=== PATIENT | male | born 1970 | race Two or more races ===

== ENCOUNTER 2019-03-08 10:20 | Emergency (ER) | payer MEDICARE, MEDICAID ==
[~2019-03-08] VITALS: Ht 172.7 cm; Wt 179.6 kg
[~2019-03-08 10:20] MED LIST: ALBU18HF2 INH; AMLO5TAB PO; ASPI-1264 PO; ATEN100T PO; BUDE180A INH; CITA40TA11 PO; HYDR-4383 PO; LISI10TA4 PO; METF-437 PO; TAMS0.4C32 PO; TRIA1CAP6 PO
[2019-03-08 10:32] VITALS: BP 135/78
[2019-03-08] MEDS ORDERED: ketorolac tromethamine 15mg/ml inj. IM ONE (10:45)
== END 2019-03-08 11:55 | disposition home or self-care (01) ==
LOC: ER 10:21
DX: M25.532 Pain in left wrist (principal); E66.9 Obesity, unspecified; I10 Essential (primary) hypertension; J44.9 Chronic obstructive pulmonary disease, unspecified; G89.29 Other chronic pain; Z56.0 Unemployment, unspecified; Z98.890 Other specified postprocedural states; Z90.49 Acquired absence of other specified parts of digestive tract; Z98.84 Bariatric surgery status; Z88.5 Allergy status to narcotic agent; Z79.82 Long term (current) use of aspirin; Z79.899 Other long term (current) drug therapy
CPT/HCPCS: 29125; 73110; 96372; 99283; J1885

== ENCOUNTER 2019-05-03 08:22 | Emergency (ER) | payer MEDICARE, MEDICAID ==
[~2019-05-03] VITALS: Ht 180.3 cm; Wt 178.0 kg
[2019-05-03 09:22] LABS: BASOPHILS % (AUTO) 0.5 % (0-1); EOSINOPHILS # (AUTO) 0.2 X10'3 (0-0.9); EOSINOPHILS % (AUTO) 2.5 % (0-6); HEMATOCRIT 40.1 % (42.0-52.0); HEMOGLOBIN 13.6 g/dl (14.0-17.9); LYMPHOCYTES # (AUTO) 1.5 X10'3 (1.1-4.8); LYMPHOCYTES % (AUTO) 17.7 % (21-51); MEAN CORPUSCULAR HEMOGLOBIN 28.8 PG (27.0-31.0); MEAN CORPUSCULAR VOLUME 84.8 FL (78-98); MEAN PLATELET VOLUME 8.7 FL (7.4-10.4); MONOCYTES # (AUTO) 0.6 X10'3 (0-0.9); MONOCYTES % (AUTO) 7.2 % (2-12); NEUTROPHILS # (AUTO) 6.1 X10'3 (1.8-7.7); NEUTROPHILS % (AUTO) 72.1 % (42-75); PLATELET COUNT 176 X10'3 (140-440); RED BLOOD COUNT 4.73 X10'6 (4.70-6.10); RED CELL DISTRIBUTION WIDTH 14.2 % (11.5-14.5); WHITE BLOOD COUNT 8.4 X10'3 (4.5-11.0)
[2019-05-03 09:32] LABS: CLARITY,URINE SLIGHTLY CLOUDY (Clear); COLOR,URINE STRAW (Yellow); GLUCOSE, URINE NEGATIVE (Neg); KETONES,URINE NEGATIVE (Neg); LEUKOCYTE ESTERASE ,URINE NEGATIVE (Neg); NITRITES, URINE NEGATIVE (Neg); OCCULT BLOOD,URINE NEGATIVE (Neg); PROTEIN,URINE NEGATIVE (Neg); UROBILINOGEN,URINE 0.2 E.U/dL (0.2-1.0)
[2019-05-03 09:33] LABS: UA COLLECTION TYPE CLN CATCH MIDSTREAM
[2019-05-03 09:37] LABS: SQUAMOUS EPITHELIAL CELL,UR MANY /LPF (FEW)
[2019-05-03 09:38] LABS: BACTERIA,URINE 1+ /HPF (Neg); RBC,URINE 0-2 /HPF (0-2); WBC,URINE 0-4 /HPF (0-4)
[2019-05-03 09:38] LABS: D-DIMER 3.54 MG/L FEU (0-0.50)
[2019-05-03 09:49] LABS: ALANINE AMINOTRANSFERASE 17 U/L (12-78); ALBUMIN 3.4 G/DL (3.4-5.0); ALBUMIN/GLOBULIN RATIO 0.8 (1.1-1.5); ALKALINE PHOSPHATASE 62 IU/L (46-116); ANION GAP 6 (8-16); ASPARTATE AMINO TRANSFERASE 13 U/L (10-37); BILIRUBIN,TOTAL 0.3 MG/DL (0.1-1.0); BLOOD UREA NITROGEN 14 MG/DL (7-18); BUN/CREATININE RATIO 14.3 (5.4-32.0); CALCIUM 8.8 MG/DL (8.5-10.1); CHLORIDE 104 MMOL/L (99-107); CREATININE 0.98 MG/DL (0.60-1.10); GLUCOSE 152 MG/DL (70-104); SODIUM 138 MMOL/L (135-145); TOTAL CARBON DIOXIDE 28.3 MMOL/L (24-32); TOTAL PROTEIN 7.5 G/DL (6.4-8.2); eGFR 82 ML/MIN
[2019-05-03] MEDS ORDERED: iohexol 350MG/ML 100ml bottle IV ONE (10:32)
[2019-05-03] MEDS ORDERED: MESSAGE TO NURSING PO ONE (11:05)
[2019-05-03 11:20] VITALS: BP 107/47
[2019-05-03] MEDS ORDERED: ketorolac tromethamine 15mg/ml inj. IM ONE (11:25)
[2019-05-03] MEDS: orphenadrine citrate 60mg/2ml inj. IM ONE ×2 (11:33→11:38)
== END 2019-05-03 12:06 | disposition home or self-care (01) ==
LOC: ER 08:22
DX: S29.012A Strain of muscle and tendon of back wall of thorax, initial encounter (principal); E66.9 Obesity, unspecified; E11.9 Type 2 diabetes mellitus without complications; I10 Essential (primary) hypertension; J44.9 Chronic obstructive pulmonary disease, unspecified; G89.29 Other chronic pain; F17.200 Nicotine dependence, unspecified, uncomplicated; Z56.0 Unemployment, unspecified; Z98.890 Other specified postprocedural states; Z90.49 Acquired absence of other specified parts of digestive tract; Z98.84 Bariatric surgery status; Z88.5 Allergy status to narcotic agent; Z79.82 Long term (current) use of aspirin; Z79.899 Other long term (current) drug therapy; X58.XXXA Exposure to other specified factors, initial encounter; Y93.89 Activity, other specified; Y92.89 Other specified places as the place of occurrence of the external cause; Y99.9 Unspecified external cause status
CPT/HCPCS: 36415; 71045; 71275; 80053; 81001; 83880; 85025; 85379; 96372; 99284; J1885; J2360; Q9967

== ENCOUNTER 2020-03-28 17:03 | Emergency (ER) | payer MEDICARE, MEDICAID ==
[~2020-03-28] VITALS: Ht 172.7 cm; Wt 186.4 kg
[2020-03-28] MEDS ORDERED: methylPREDNISolone sod succ 125mg/2ml vial IV ONE (17:25)
[2020-03-28] MEDS ORDERED: normal saline 1000ML IV soln IVB ONE ×2 (17:25→18:25)
[2020-03-28] MEDS ORDERED: ondansetron/PF 4mg/2ml inj IV ONE (17:30)
[2020-03-28] MEDS ORDERED: morphine 4 MG/ML inj SYRINge IV ONE (18:15)
[2020-03-28 18:18] LABS: BASOPHILS % (AUTO) 0.3 % (0-1); EOSINOPHILS # (AUTO) 0.2 X10'3 (0-0.9); EOSINOPHILS % (AUTO) 4.5 % (0-6); HEMATOCRIT 41.2 % (42.0-52.0); LYMPHOCYTES # (AUTO) 0.5 X10'3 (1.1-4.8); LYMPHOCYTES % (AUTO) 9.7 % (21-51); MEAN CORPUSCULAR HEMOGLOBIN 28.6 PG (27.0-31.0); MEAN PLATELET VOLUME 8.4 FL (7.4-10.4); MONOCYTES # (AUTO) 0.6 X10'3 (0-0.9); MONOCYTES % (AUTO) 13.2 % (2-12); NEUTROPHILS # (AUTO) 3.5 X10'3 (1.8-7.7); NEUTROPHILS % (AUTO) 72.3 % (42-75); PLATELET COUNT 184 X10'3 (140-440); RED CELL DISTRIBUTION WIDTH 13.2 % (11.5-14.5); WHITE BLOOD COUNT 4.9 X10'3 (4.5-11.0)
[2020-03-28] MEDS ORDERED: acetaminophen 325mg tablet PO ONE (18:25)
[2020-03-28 18:30] LABS: PARTIAL THROMBOPLASTIN TIME 27 SECONDS (22-32)
[2020-03-28 18:44] LABS: ALANINE AMINOTRANSFERASE 24 U/L (12-78); ALBUMIN 3.5 G/DL (3.4-5.0); ALBUMIN/GLOBULIN RATIO 0.9 (1.1-1.5); ALKALINE PHOSPHATASE 61 IU/L (46-116); ANION GAP 8 (8-16); ASPARTATE AMINO TRANSFERASE 10 U/L (10-37); BILIRUBIN,TOTAL 0.9 MG/DL (0.1-1.0); BLOOD UREA NITROGEN 10 MG/DL (7-18); BUN/CREATININE RATIO 11.9 (5.4-32.0); CALCIUM 8.4 MG/DL (8.5-10.1); CHLORIDE 99 MMOL/L (99-107); CREATININE 0.84 MG/DL (0.60-1.10); GLUCOSE 150 MG/DL (70-104); POTASSIUM 3.6 MMOL/L (3.5-5.1); SODIUM 134 MMOL/L (135-145); TOTAL CARBON DIOXIDE 26.7 MMOL/L (24-32); TOTAL PROTEIN 7.3 G/DL (6.4-8.2); eGFR > 90 ML/MIN
[2020-03-28 20:16] LABS: CLARITY,URINE CLEAR (Clear); COLOR,URINE YELLOW (Yellow); GLUCOSE, URINE NEGATIVE (Neg); KETONES,URINE NEGATIVE (Neg); LEUKOCYTE ESTERASE ,URINE NEGATIVE (Neg); NITRITES, URINE NEGATIVE (Neg); OCCULT BLOOD,URINE SMALL (Neg); PROTEIN,URINE NEGATIVE (Neg); UROBILINOGEN,URINE 0.2 E.U/dL (0.2-1.0)
[2020-03-28 20:24] VITALS: BP 116/71
[2020-03-28 20:24] LABS: UA COLLECTION TYPE VOIDED
[2020-03-28 20:26] LABS: BACTERIA,URINE NONE SEEN /HPF (Neg); RBC,URINE 0-2 /HPF (0-2); SQUAMOUS EPITHELIAL CELL,UR FEW /LPF (FEW); WBC,URINE NONE SEEN /HPF (0-4)
[2020-03-28] MEDS ORDERED: ONDA4TAB6 PO (20:40)
--- NOTE | 2020-03-28 21:19 | NUR ---
VS [id number]/71 [phone]
== END 2020-03-28 21:44 | disposition home or self-care (01) ==
LOC: ER 17:03
DX: R19.7 Diarrhea, unspecified (principal); R11.2 Nausea with vomiting, unspecified; J02.9 Acute pharyngitis, unspecified; I10 Essential (primary) hypertension; J44.9 Chronic obstructive pulmonary disease, unspecified; E11.9 Type 2 diabetes mellitus without complications; F41.9 Anxiety disorder, unspecified; F32.9 Major depressive disorder, single episode, unspecified; F17.200 Nicotine dependence, unspecified, uncomplicated; Z90.49 Acquired absence of other specified parts of digestive tract; Z98.61 Coronary angioplasty status; Z56.0 Unemployment, unspecified; Z88.5 Allergy status to narcotic agent; Z79.82 Long term (current) use of aspirin; Z79.899 Other long term (current) drug therapy
CPT/HCPCS: 36415; 71045; 80053; 81001; 83605; 83880; 85025; 85610; 85730; 87040; 87635; 93005; 96361; 96374; 96375; 99285; J2270; J2405; J2930; J7030

== ENCOUNTER 2020-06-16 11:25 | Emergency (ER) | payer MEDICARE, MEDICAID ==
[~2020-06-16] VITALS: Ht 172.7 cm; Wt 200.0 kg
[~2020-06-16 11:25] MED LIST changes: -BUDE180A INH; -LISI10TA4 PO; +OXYB5TAB16 PO; +UMEC1DIS INH
[2020-06-16] MEDS ORDERED: fentaNYL/PF 50MCG/1 ML 2ML syringe IV ONE (12:00)
[2020-06-16] MEDS ORDERED: normal saline 1000ml 1,000 ML IV ONE (12:25)
[2020-06-16] MEDS ORDERED: oxyCODONE/APAP 10/325mg tablet PO ONE (12:40)
[2020-06-16] MEDS ORDERED: TETanus/Pertussis (Acell)/Diphther VAC/PF (Tdap-Adult) 0.5ml syringe IMVAC ONE (12:40)
[2020-06-16] MEDS ORDERED: BACI1PAC7 TOP ×2 (12:44→14:29)
[2020-06-16] MEDS ORDERED: OXYC-145 PO (12:44)
[2020-06-16] MEDS: morphine 10mg/ml inj. IV PRN ×2 (12:50→13:44)
[2020-06-16] MEDS ORDERED: mag hydrox/Alum hydrox/simeth 30ml oral suspension PO ONE (13:20)
[2020-06-16] MEDS ORDERED: ketamine 10mg/ml 20ml inj IV ONE (14:35)
[2020-06-16] MEDS ORDERED: ketamine 50 mg/ml 10ml vial IV ONE (14:40)
[2020-06-16] MEDS ORDERED: ondansetron/PF 4mg/2ml inj IV ONE (15:45)
[2020-06-16] MEDS ORDERED: proCHLORperazine 10 MG/2 ml inj IV ONE (17:10)
[2020-06-16 17:17] VITALS: BP 127/79
== END 2020-06-16 17:22 | disposition home or self-care (01) ==
LOC: ER 11:26
DX: T23.201A Burn of second degree of right hand, unspecified site, initial encounter (principal); T31.0 Burns involving less than 10% of body surface; T20.20XA Burn of second degree of head, face, and neck, unspecified site, initial encounter; T21.21XA Burn of second degree of chest wall, initial encounter; T20.22XA Burn of second degree of lip(s), initial encounter; T23.221A Burn of second degree of single right finger (nail) except thumb, initial encounter; I10 Essential (primary) hypertension; J44.9 Chronic obstructive pulmonary disease, unspecified; G89.29 Other chronic pain; E11.9 Type 2 diabetes mellitus without complications; F41.9 Anxiety disorder, unspecified; F32.9 Major depressive disorder, single episode, unspecified; Z90.49 Acquired absence of other specified parts of digestive tract; Z98.890 Other specified postprocedural states; Z72.89 Other problems related to lifestyle; Z56.0 Unemployment, unspecified; Z88.5 Allergy status to narcotic agent; Z79.82 Long term (current) use of aspirin; Z79.84 Long term (current) use of oral hypoglycemic drugs; Z79.899 Other long term (current) drug therapy; X08.8XXA Exposure to other specified smoke, fire and flames, initial encounter; Y93.89 Activity, other specified; Y92.89 Other specified places as the place of occurrence of the external cause; Y99.8 Other external cause status
CPT/HCPCS: 90471; 90715; 96361; 96374; 96375; 96376; 99285; J0780; J2270; J2405; J3010; J7030

== ENCOUNTER 2020-06-17 05:39 | Day surgery (SDC) | payer MEDICARE, MEDICAID ==
[2020-06-10 16:11] LABS: ALBUMIN 3.6 G/DL (3.4-5.0); ALKALINE PHOSPHATASE 62 IU/L (46-116); BLOOD UREA NITROGEN 9 MG/DL (7-18); BUN/CREATININE RATIO 10.6 (5.4-32.0); CALCIUM 8.9 MG/DL (8.5-10.1); CHLORIDE 103 MMOL/L (99-107); CREATININE 0.85 MG/DL (0.60-1.10); PRE OP ALT 21 U/L (30-65); PRE OP ANION GAP 7 (8-16); PRE OP AST 13 U/L (10-37); PRE OP BILIRUB, TOTAL 0.3 MG/DL (0.0-1.0); PRE OP GLUCOSE 120 MG/DL (70-104); PRE OP POTASSIUM 3.9 MMOL/L (3.4-5.1); PRE OP SODIUM 138 MMOL/L (135-145); TOTAL CARBON DIOXIDE 27.9 MMOL/L (24-32); TOTAL PROTEIN 7.3 G/DL (6.4-8.2); eGFR > 90 ML/MIN
[2020-06-10 16:14] LABS: BASOPHILS % (AUTO) 0.6 % (0-1); EOSINOPHILS # (AUTO) 0.3 X10'3 (0-0.9); EOSINOPHILS % (AUTO) 3.3 % (0-6); LYMPHOCYTES # (AUTO) 1.9 X10'3 (1.1-4.8); LYMPHOCYTES % (AUTO) 24.6 % (21-51); MEAN CORPUSCULAR HEMOGLOBIN 28.6 PG (27.0-31.0); MEAN CORPUSCULAR HGB CONC 33.6 g/dL (33.0-36.5); MEAN PLATELET VOLUME 8.8 FL (7.4-10.4); MONOCYTES # (AUTO) 0.5 X10'3 (0-0.9); MONOCYTES % (AUTO) 6.7 % (2-12); NEUTROPHILS % (AUTO) 64.8 % (42-75); PRE OP HEMOGLOBIN 13.8 g/dL (14.0-17.9); PRE OP PLATELET COUNT 201 X10'3 (140-440); RED BLOOD COUNT 4.83 X10'6 (4.70-6.10); RED CELL DISTRIBUTION WIDTH 13.9 % (11.5-14.5)
[~2020-06-17] VITALS: Ht 172.7 cm; Wt 181.4 kg
[~2020-06-17 05:39] MED LIST changes: +BACI1PAC7 TOP; +DOCUMENT DATE & TIME OF BETA-BLOCKER PO ONE; +ceFAZolin 2gm in dextrose, iso 50 ML IV ONE; +famotidine 20mg tablet PO ONE; +ringers solution, lacted 1,000 ML IV SCH
--- NOTE | 2020-06-17 06:25 | NUR ---
PT CAME IN WITH NUMEROUS ZEE TO FACE, CHEST AND RT ARM. DR HARP NOTIFIED AND CANCELED CASE. PT SENT HOME WITH INSTRUCTIONS TO CALL DR BURGESS OFFICE TO RESCHEDULE. (PT WAS SEEN OVER WEEKEND IN HOSPITAL FOR ZEE.) HOME WITH FRIEND.
== END 2020-06-17 06:25 | disposition home or self-care (01) ==
LOC: PAS 05:39
PROVIDERS: ATTEND Orthopaedic Surgery Hand Surgery
DX: G56.02 Carpal tunnel syndrome, left upper limb (principal); Z53.8 Procedure and treatment not carried out for other reasons; M65.342 Trigger finger, left ring finger; Z72.0 Tobacco use
CPT/HCPCS: 36415; 80053; 85025; 87635; 93005; J7120

== ENCOUNTER 2020-07-05 05:17 | Day surgery (SDC) | payer MEDICARE, MEDICAID ==
[2020-06-28 10:58] LABS: BASOPHILS # (AUTO) 0.1 X10'3 (0-0.2); BASOPHILS % (AUTO) 0.8 % (0-1); EOSINOPHILS # (AUTO) 0.2 X10'3 (0-0.9); EOSINOPHILS % (AUTO) 2.8 % (0-6); LYMPHOCYTES # (AUTO) 1.6 X10'3 (1.1-4.8); LYMPHOCYTES % (AUTO) 26.8 % (21-51); MEAN CORPUSCULAR HEMOGLOBIN 27.9 PG (27.0-31.0); MEAN CORPUSCULAR HGB CONC 33.4 g/dL (33.0-36.5); MEAN CORPUSCULAR VOLUME 83.4 FL (78-98); MEAN PLATELET VOLUME 8.5 FL (7.4-10.4); MONOCYTES # (AUTO) 0.5 X10'3 (0-0.9); MONOCYTES % (AUTO) 7.7 % (2-12); NEUTROPHILS # (AUTO) 3.7 X10'3 (1.8-7.7); NEUTROPHILS % (AUTO) 61.9 % (42-75); PRE OP HEMATOCRIT 43.7 % (42.0-52.0); PRE OP HEMOGLOBIN 14.6 g/dL (14.0-17.9); PRE OP PLATELET COUNT 221 X10'3 (140-440); RED BLOOD COUNT 5.24 X10'6 (4.70-6.10); RED CELL DISTRIBUTION WIDTH 13.4 % (11.5-14.5)
[2020-06-28 11:13] LABS: ALBUMIN 3.7 G/DL (3.4-5.0); ALBUMIN/GLOBULIN RATIO 0.9 (1.1-1.5); ALKALINE PHOSPHATASE 73 IU/L (46-116); BLOOD UREA NITROGEN 10 MG/DL (7-18); BUN/CREATININE RATIO 11.1 (5.4-32.0); CHLORIDE 104 MMOL/L (99-107); PRE OP ALT 19 U/L (30-65); PRE OP ANION GAP 6 (8-16); PRE OP AST 11 U/L (10-37); PRE OP BILIRUB, TOTAL 0.3 MG/DL (0.0-1.0); PRE OP GLUCOSE 107 MG/DL (70-104); PRE OP POTASSIUM 4.4 MMOL/L (3.4-5.1); PRE OP SODIUM 140 MMOL/L (135-145); TOTAL CARBON DIOXIDE 29.7 MMOL/L (24-32); TOTAL PROTEIN 7.8 G/DL (6.4-8.2); eGFR 90 ML/MIN
[~2020-07-05] VITALS: Ht 172.7 cm; Wt 179.8 kg
[~2020-07-05 05:17] MED LIST changes: -DOCUMENT DATE & TIME OF BETA-BLOCKER PO ONE; -ceFAZolin 2gm in dextrose, iso 50 ML IV ONE; -famotidine 20mg tablet PO ONE; -ringers solution, lacted 1,000 ML IV SCH
[2020-07-05] MEDS ORDERED: famotidine 20mg tablet PO ONE (05:30)
[2020-07-05] MEDS ORDERED: ceFAZolin inj. 3,000 MG in normal saline 100ml IV soln 100 ML IV ONE (05:30)
[2020-07-05] MEDS ORDERED: albuterol 2.5 MG/3 ML nebule NEB ONE (05:30)
[2020-07-05] MEDS ORDERED: DOCUMENT DATE & TIME OF BETA-BLOCKER PO ONE (05:30)
[2020-07-05] MEDS ORDERED: LIDOcaine 1% (10mg/ml) 2ml vial ONE (05:36)
[2020-07-05 06:21] VITALS: BP 129/80
[2020-07-05 06:26] VITALS: BP 129/70
[2020-07-05] MEDS ORDERED: BUPIVAcaine/PF 2.5mg/ml (0.25%) 10ml vial ONE (06:36)
[2020-07-05] MEDS ORDERED: LIDOcaine 0.5% (5mg/ml) 50ml vial ONE (07:11)
[2020-07-05] MEDS ORDERED: fentaNYL/PF 50MCG/1 ML 2ML syringe ONE (07:22)
[2020-07-05] MEDS ORDERED: midazolam 2 mg/2 ml injection ONE (07:23)
[2020-07-05] MEDS ORDERED: morphine 4 MG/ML inj SYRINge IV PRN (07:45)
[2020-07-05] MEDS ORDERED: meperidine/PF 25mg/ml syringe IV PRN (07:45)
[2020-07-05] MEDS ORDERED: fentaNYL/PF 50MCG/1 ML 2ML syringe IV PRN ×2 (07:45)
[2020-07-05] MEDS ORDERED: proCHLORperazine 10 MG/2 ml inj IV PRN (07:45)
[2020-07-05] MEDS ORDERED: ringers solution, lacted 1,000 ML IV SCH (07:45)
[2020-07-05] MEDS ORDERED: labetalol 20mg/4ml (5mg/ml) syringe IV PRN (07:45)
[2020-07-05] MEDS ORDERED: propofol inj 20 ML IV ONE (07:45)
[2020-07-05] MEDS ORDERED: acetaminophen 1,000mg/100ml IV 100 ML IV PRN (07:45)
[2020-07-05] MEDS ORDERED: ondansetron/PF 4mg/2ml inj IV PRN (07:45)
[2020-07-05] MEDS ORDERED: morphine 2 MG/ML inj. syringe IV PRN (07:45)
[2020-07-05] MEDS ORDERED: hydrALAZINE 20mg/ml inj. IV PRN (07:45)
[2020-07-05 07:50] VITALS: BP 123/77
--- NOTE | 2020-07-05 07:50 | NUR ---
Received from OR via [facility] , accompanied by Anesthesiologist REJI and report given by Anesthesiolgist. PATIENT WITH 20GPIV IN RIGHT HAND. LEFT WITH BIAS DRESSING THAT IS CDI. DENIES PAIN. PATIENT WITH + CAP REFILL. VSS Addendum: 07/05/20 at 0757 by Leonel Courtney RN, RN Amended: Links added.
[2020-07-05 07:55] VITALS: BP 123/77
[2020-07-05 08:00] VITALS: BP 121/70
[2020-07-05 08:10] VITALS: BP 115/74
--- NOTE | 2020-07-05 08:20 | NUR ---
PATIENT A&OX4, DENIES PAIN, V/S WNL, NEUROVASCULAR CHECKS INTACT, 20G PIV LUE D/C, SCD OFF, DRESSING TO RIGHT WRIST CDI ELEVATED WITH ICEBAG APPLIED. I HAVE REVIEWED D/C INSTRUCTIONS WITH PATIENT AND FAMILY AND THEY HAVE VERBALIZED UNDERSTANDING. PATIENT D/C HOME WITH ALL BELONGINGS AND FAMILY GAVE TRANSPORT HOME. Addendum: 07/05/20 at 0828 by Leonel Courtney RN, RN Amended: Links added.
== END 2020-07-05 08:20 | disposition home or self-care (01) ==
LOC: PAS 05:17
PROVIDERS: ATTEND Orthopaedic Surgery Hand Surgery
DX: G56.02 Carpal tunnel syndrome, left upper limb (principal); M65.342 Trigger finger, left ring finger; Z20.822 Contact with and (suspected) exposure to COVID-19; M16.11 Unilateral primary osteoarthritis, right hip; E66.01 Morbid (severe) obesity due to excess calories; Z68.43 Body mass index [BMI] 50.0-59.9, adult; J44.9 Chronic obstructive pulmonary disease, unspecified; I10 Essential (primary) hypertension; E11.9 Type 2 diabetes mellitus without complications; F17.210 Nicotine dependence, cigarettes, uncomplicated; G47.30 Sleep apnea, unspecified; Z88.5 Allergy status to narcotic agent; Z90.49 Acquired absence of other specified parts of digestive tract; Z98.84 Bariatric surgery status; Z98.890 Other specified postprocedural states; Z79.84 Long term (current) use of oral hypoglycemic drugs; Z79.899 Other long term (current) drug therapy
CPT/HCPCS: 26055; 29848; 36415; 71046; 80053; 82948; 85025; 87635; J0690; J2001; J2250; J2704; J3010; J3490; A4215; A7000

== ENCOUNTER 2020-08-09 05:26 | Day surgery (SDC) | payer MEDICARE, MEDICAID ==
[2020-08-05 09:59] LABS: BASOPHILS # (AUTO) 0.1 X10'3 (0-0.2); BASOPHILS % (AUTO) 0.9 % (0-1); EOSINOPHILS # (AUTO) 0.2 X10'3 (0-0.9); EOSINOPHILS % (AUTO) 2.6 % (0-6); LYMPHOCYTES # (AUTO) 1.5 X10'3 (1.1-4.8); LYMPHOCYTES % (AUTO) 22.9 % (21-51); MEAN CORPUSCULAR VOLUME 82.2 FL (78-98); MEAN PLATELET VOLUME 8.2 FL (7.4-10.4); MONOCYTES # (AUTO) 0.6 X10'3 (0-0.9); MONOCYTES % (AUTO) 8.7 % (2-12); NEUTROPHILS # (AUTO) 4.2 X10'3 (1.8-7.7); NEUTROPHILS % (AUTO) 64.9 % (42-75); PRE OP HEMATOCRIT 41.6 % (42.0-52.0); PRE OP HEMOGLOBIN 14.2 g/dL (14.0-17.9); PRE OP PLATELET COUNT 179 X10'3 (140-440); RED BLOOD COUNT 5.06 X10'6 (4.70-6.10); RED CELL DISTRIBUTION WIDTH 13.5 % (11.5-14.5)
[2020-08-05 10:19] LABS: ALBUMIN 3.4 G/DL (3.4-5.0); ALBUMIN/GLOBULIN RATIO 0.9 (1.1-1.5); ALKALINE PHOSPHATASE 65 IU/L (46-116); BLOOD UREA NITROGEN 9 MG/DL (7-18); BUN/CREATININE RATIO 11.1 (5.4-32.0); CHLORIDE 102 MMOL/L (99-107); CREATININE 0.81 MG/DL (0.60-1.10); PRE OP ALT 17 U/L (30-65); PRE OP ANION GAP 8 (8-16); PRE OP AST 10 U/L (10-37); PRE OP BILIRUB, TOTAL 0.4 MG/DL (0.0-1.0); PRE OP GLUCOSE 150 MG/DL (70-104); PRE OP POTASSIUM 4.1 MMOL/L (3.4-5.1); PRE OP SODIUM 140 MMOL/L (135-145); TOTAL PROTEIN 7.4 G/DL (6.4-8.2); eGFR > 90 ML/MIN
[~2020-08-09] VITALS: Ht 172.7 cm; Wt 181.8 kg
[~2020-08-09 05:26] MED LIST changes: -AMLO5TAB PO; -ASPI-1264 PO; -ATEN100T PO; -BACI1PAC7 TOP; -CITA40TA11 PO; +LORA10TA7 PO; +OMEP20TA5 PO; +ringers solution, lacted 1,000 ML IV SCH
[2020-08-09 05:30] VITALS: BP 134/69
[2020-08-09] MEDS ORDERED: famotidine 20mg tablet PO ONE ×2 (05:30→06:05)
[2020-08-09] MEDS ORDERED: ceFAZolin inj. 3,000 MG in normal saline 100ml IV soln 100 ML IV ONE (05:30)
[2020-08-09] MEDS ORDERED: LIDOcaine 1% (10mg/ml) 2ml vial ONE (05:44)
[2020-08-09] MEDS ORDERED: BUPIVAcaine/PF 2.5mg/ml (0.25%) 10ml vial ONE (06:45)
[2020-08-09] MEDS ORDERED: LIDOcaine 0.5% (5mg/ml) 50ml vial ONE (07:31)
[2020-08-09] MEDS ORDERED: fentaNYL/PF 50MCG/1 ML 2ML syringe ONE ×2 (07:34→07:44)
[2020-08-09] MEDS ORDERED: midazolam 2 mg/2 ml injection ONE ×2 (07:36→07:46)
[2020-08-09] MEDS ORDERED: hydrALAZINE 20mg/ml inj. IV ONE (08:01)
[2020-08-09] MEDS ORDERED: propofol inj 20 ML IV ONE (08:01)
[2020-08-09 08:05] VITALS: BP 110/71
--- NOTE | 2020-08-09 08:05 | NUR ---
ADMITTED TO PACU FROM OR ACCOMPANIED BY ANESTHESIA. INTIAL PHYSICAL ASSESSMENT DONE AND RECORDED. REPORT RECEIVED FROM ANESTHESIA.
[2020-08-09 08:10] VITALS: BP 122/76
[2020-08-09 08:20] VITALS: BP 124/77
--- NOTE | 2020-08-09 08:30 | NUR ---
DISCHARGE CRITERIA MET, DISCHARGE INSTRUCTIONS GIVEN, DEMONSTRATES VERBAL UNDERSTANDING. DISCHARGED HOME IN GOOD CONDITION.
== END 2020-08-09 08:05 | disposition home or self-care (01) ==
LOC: PAS 05:26
PROVIDERS: ATTEND Orthopaedic Surgery Hand Surgery
DX: G56.01 Carpal tunnel syndrome, right upper limb (principal); M65.341 Trigger finger, right ring finger; M16.11 Unilateral primary osteoarthritis, right hip; F17.210 Nicotine dependence, cigarettes, uncomplicated; Z90.49 Acquired absence of other specified parts of digestive tract; G47.30 Sleep apnea, unspecified; J44.9 Chronic obstructive pulmonary disease, unspecified; I10 Essential (primary) hypertension; E11.9 Type 2 diabetes mellitus without complications; N40.0 Benign prostatic hyperplasia without lower urinary tract symptoms; E66.9 Obesity, unspecified; Z68.43 Body mass index [BMI] 50.0-59.9, adult; Z20.822 Contact with and (suspected) exposure to COVID-19; Z79.899 Other long term (current) drug therapy; Z79.84 Long term (current) use of oral hypoglycemic drugs; Z88.5 Allergy status to narcotic agent; Z98.890 Other specified postprocedural states
CPT/HCPCS: 26055; 29848; 36415; 80053; 82948; 85025; 87635; J0360; J0690; J2001; J2250; J2704; J3010; J3490; A4215; J7120

== ENCOUNTER 2021-10-25 09:45 | Emergency (ER) | payer MEDICARE, MEDICAID ==
[~2021-10-25] VITALS: Ht 172.7 cm; Wt 177.3 kg
[~2021-10-25 09:45] MED LIST changes: +OMEP20TA43 PO; -OMEP20TA5 PO; -ringers solution, lacted 1,000 ML IV SCH
[2021-10-25 10:12] VITALS: BP 120/68
[2021-10-25] MEDS ORDERED: DOXY100C76 PO (10:55)
== END 2021-10-25 11:34 | disposition home or self-care (01) ==
LOC: ER 09:46
DX: L72.3 Sebaceous cyst (principal); I10 Essential (primary) hypertension; J44.9 Chronic obstructive pulmonary disease, unspecified; E11.9 Type 2 diabetes mellitus without complications; G89.29 Other chronic pain; M54.9 Dorsalgia, unspecified; Z56.0 Unemployment, unspecified; Z88.5 Allergy status to narcotic agent; Z79.899 Other long term (current) drug therapy
CPT/HCPCS: 99284

== ENCOUNTER 2021-11-27 16:45 | Emergency (ER) | payer MEDICARE, MEDICAID ==
[~2021-11-27] VITALS: Ht 175.3 cm; Wt 174.1 kg
[~2021-11-27 16:45] MED LIST changes: -TRIA1CAP6 PO; +TRIA1CAP88 PO
[2021-11-27 16:48] VITALS: BP 120/68
[2021-11-27 17:11] LABS: CLARITY,URINE CLEAR (Clear); COLOR,URINE ORANGE (Yellow); GLUCOSE, URINE NEGATIVE (Neg); KETONES,URINE NEGATIVE (Neg); LEUKOCYTE ESTERASE ,URINE SMALL (Neg); NITRITES, URINE POSITIVE (Neg); OCCULT BLOOD,URINE TRACE-INTACT (Neg); PROTEIN,URINE NEGATIVE (Neg); UROBILINOGEN,URINE 0.2 E.U/dL (0.2-1.0)
[2021-11-27 17:13] LABS: UA COLLECTION TYPE CLN CATCH MIDSTREAM
[2021-11-27 17:21] LABS: SQUAMOUS EPITHELIAL CELL,UR MODERATE /LPF (FEW)
[2021-11-27 17:23] LABS: BACTERIA,URINE 1+ /HPF (Neg)
[2021-11-27 17:24] LABS: BASOPHILS # (AUTO) 0.1 X10'3 (0-0.2); BASOPHILS % (AUTO) 0.8 % (0-1); EOSINOPHILS # (AUTO) 0.1 X10'3 (0-0.9); HEMATOCRIT 37.9 % (42.0-52.0); HEMOGLOBIN 12.9 g/dl (14.0-17.9); LYMPHOCYTES # (AUTO) 1.7 X10'3 (1.1-4.8); LYMPHOCYTES % (AUTO) 11.7 % (21-51); MEAN CORPUSCULAR HEMOGLOBIN 28.2 PG (27.0-31.0); MEAN CORPUSCULAR HGB CONC 34.2 g/dL (33.0-36.5); MEAN CORPUSCULAR VOLUME 82.5 FL (78-98); MEAN PLATELET VOLUME 9.1 FL (7.4-10.4); MONOCYTES % (AUTO) 6.8 % (2-12); NEUTROPHILS # (AUTO) 11.7 X10'3 (1.8-7.7); NEUTROPHILS % (AUTO) 79.7 % (42-75); PLATELET COUNT 152 X10'3 (140-440); RED BLOOD COUNT 4.59 X10'6 (4.70-6.10); WHITE BLOOD COUNT 14.7 X10'3 (4.5-11.0)
[2021-11-27 17:24] LABS: TRANSITIONAL EPI CELLS,URINE FEW /HPF; WBC,URINE 20-30 /HPF (0-4)
[2021-11-27 17:25] LABS: RBC,URINE 0-2 /HPF (0-2)
[2021-11-27 17:26] LABS: WBC CLUMPS,URINE MODERATE /HPF (NEGATIVE)
[2021-11-27 17:39] LABS: ALANINE AMINOTRANSFERASE 23 U/L (12-78); ALBUMIN 3.5 G/DL (3.4-5.0); ALBUMIN/GLOBULIN RATIO 0.9 (1.1-1.5); ALKALINE PHOSPHATASE 72 IU/L (46-116); ANION GAP 6 (8-16); ASPARTATE AMINO TRANSFERASE 17 U/L (10-37); BILIRUBIN,TOTAL 1.2 MG/DL (0.1-1.0); BLOOD UREA NITROGEN 9 MG/DL (7-18); BUN/CREATININE RATIO 10.3 (5.4-32.0); CALCIUM 8.5 MG/DL (8.5-10.1); CHLORIDE 100 MMOL/L (99-107); CREATININE 0.87 MG/DL (0.60-1.10); GLUCOSE 115 MG/DL (70-104); LIPASE < 50 U/L (73-393); POTASSIUM 3.5 MMOL/L (3.5-5.1); SODIUM 136 MMOL/L (135-145); TOTAL CARBON DIOXIDE 30.4 MMOL/L (24-32); TOTAL PROTEIN 7.3 G/DL (6.4-8.2); eGFR > 90 ML/MIN
== END 2021-11-27 20:59 | disposition left against medical advice (07) ==
LOC: ER 16:47
DX: R35.0 Frequency of micturition (principal); Z53.21 Procedure and treatment not carried out due to patient leaving prior to being seen by health care provider
CPT/HCPCS: 36415; 80053; 81001; 83690; 85025; 87077; 87088; 87186

== ENCOUNTER 2022-11-10 13:06 | Emergency (ER) | payer MEDICARE, MEDICAID ==
[~2022-11-10] VITALS: Ht 172.7 cm; Wt 168.2 kg
[2022-11-10 13:28] LABS: BASOPHILS # (AUTO) 0.1 X10'3 (0-0.2); BASOPHILS % (AUTO) 0.8 % (0-1); EOSINOPHILS # (AUTO) 0.8 X10'3 (0-0.9); EOSINOPHILS % (AUTO) 9.8 % (0-6); HEMATOCRIT 41.8 % (42.0-52.0); HEMOGLOBIN 14.1 g/dl (14.0-17.9); LYMPHOCYTES # (AUTO) 2.1 X10'3 (1.1-4.8); LYMPHOCYTES % (AUTO) 28.1 % (21-51); MEAN CORPUSCULAR HEMOGLOBIN 28.6 PG (27.0-31.0); MEAN CORPUSCULAR HGB CONC 33.8 g/dL (33.0-36.5); MEAN CORPUSCULAR VOLUME 84.8 FL (78-98); MEAN PLATELET VOLUME 9.1 FL (7.4-10.4); MONOCYTES # (AUTO) 0.6 X10'3 (0-0.9); MONOCYTES % (AUTO) 7.5 % (2-12); NEUTROPHILS # (AUTO) 4.1 X10'3 (1.8-7.7); NEUTROPHILS % (AUTO) 53.8 % (42-75); PLATELET COUNT 149 X10'3 (140-440); RED BLOOD COUNT 4.93 X10'6 (4.70-6.10); RED CELL DISTRIBUTION WIDTH 13.9 % (11.5-14.5); WHITE BLOOD COUNT 7.7 X10'3 (4.5-11.0)
[2022-11-10 13:46] LABS: ALANINE AMINOTRANSFERASE 15 U/L (12-78); ALBUMIN 3.3 G/DL (3.4-5.0); ALKALINE PHOSPHATASE 66 IU/L (46-116); ANION GAP 6 (8-16); ASPARTATE AMINO TRANSFERASE 12 U/L (10-37); BILIRUBIN,TOTAL 0.4 MG/DL (0.1-1.0); BLOOD UREA NITROGEN 11 MG/DL (7-18); BUN/CREATININE RATIO 11.3 (10.0-20.0); CALCIUM 8.9 MG/DL (8.5-10.1); CHLORIDE 101 MMOL/L (99-107); CREATININE 0.97 MG/DL (0.60-1.10); GLUCOSE 160 MG/DL (70-104); POTASSIUM 3.5 MMOL/L (3.5-5.1); SODIUM 137 MMOL/L (135-145); TOTAL CARBON DIOXIDE 30.2 MMOL/L (24-32); TOTAL PROTEIN 6.7 G/DL (6.4-8.2); eGFR 82 ML/MIN
[2022-11-10 13:51] LABS: MAGNESIUM 1.5 MG/DL (1.5-2.4)
[2022-11-10 16:54] LABS: URINE AMPHETAMINE SCREEN NEGATIVE (Neg); URINE BARBITUATE SCREEN NEGATIVE (Neg); URINE BENZODIAZEPINES SCREEN NEGATIVE (Neg); URINE CANNABINOID SCREEN NEGATIVE (Neg); URINE COCAINE SCREEN NEGATIVE (Neg); URINE METHADONE SCREEN NEGATIVE (Neg); URINE OPIATE SCREEN POSITIVE (Neg); URINE PHENCYCLIDINE SCREEN NEGATIVE (Neg)
[2022-11-10 17:15] VITALS: BP 141/114
== END 2022-11-10 17:17 | disposition home or self-care (01) ==
LOC: ER 13:06
DX: I20.9 Angina pectoris, unspecified (principal); K21.9 Gastro-esophageal reflux disease without esophagitis; I10 Essential (primary) hypertension; G89.29 Other chronic pain; M54.9 Dorsalgia, unspecified; F31.9 Bipolar disorder, unspecified; Z88.5 Allergy status to narcotic agent; Z79.899 Other long term (current) drug therapy
CPT/HCPCS: 36415; 71045; 80053; 80305; 83735; 83880; 84484; 85025; 93005; 99285

== ENCOUNTER 2024-08-17 19:53 | Emergency (ER) | payer MEDICARE, MEDICAID ==
[~2024-08-17] VITALS: Ht 172.7 cm; Wt 123.9 kg
[~2024-08-17 19:53] MED LIST changes: -OXYB5TAB16 PO; +OXYB5TAB21 PO
[2024-08-17 20:27] VITALS: BP 157/82; PULSE 94; O2SAT 95
[2024-08-17] MEDS ORDERED: ketorolac trometh 15mg/ml vial 15 MG/ML ML IM ONE (22:55)
[2024-08-17] MEDS ORDERED: CEPH-585 PO (23:05)
[2024-08-17] MEDS: ibuprofen tablet 400 MG TABLET PO ONE (23:53)
[2024-08-17] MEDS ORDERED: TAM75C PO (23:54)
[2024-08-18 00:05] VITALS: TEMP 96.8
== END 2024-08-18 00:16 | disposition home or self-care (01) ==
LOC: ER 19:54
DX: J11.1 Influenza due to unidentified influenza virus with other respiratory manifestations (principal); K21.9 Gastro-esophageal reflux disease without esophagitis; I10 Essential (primary) hypertension; E11.9 Type 2 diabetes mellitus without complications; F10.90 Alcohol use, unspecified, uncomplicated; J44.89 Other specified chronic obstructive pulmonary disease; Z88.5 Allergy status to narcotic agent; Z90.49 Acquired absence of other specified parts of digestive tract; Z90.89 Acquired absence of other organs; Z98.84 Bariatric surgery status; Y90.9 Presence of alcohol in blood, level not specified
CPT/HCPCS: 99282; 99283